=== PATIENT | male | born 1970 | race Two or more races ===

== ENCOUNTER 2021-08-01 13:30 | Emergency (ER) | payer OTHER ==
[~2021-08-01] VITALS: Ht 188 cm; Wt 83.9 kg
[2021-08-01] MEDS ORDERED: KETO10TA2 PO (17:31)
[2021-08-01] MEDS ORDERED: BENADRYL25 MG PO (17:31)
[2021-08-01] MEDS ORDERED: NORFLEX100MG PO (17:31)
== END 2021-08-01 17:37 | disposition home or self-care (01) ==
LOC: ER 13:30
DX: R42 Dizziness and giddiness (principal)